=== PATIENT | male | born 1990 ===

== ENCOUNTER 2018-08-22 18:30 | Emergency (ER) | payer SELFPAY ==
[2018-08-22 19:50] VITALS: BP 128/84
== END 2018-08-22 20:40 | disposition left against medical advice (07) ==
LOC: ED 18:30
DX: Z20.2 Contact with and (suspected) exposure to infections with a predominantly sexual mode of transmission (principal); Z53.21 Procedure and treatment not carried out due to patient leaving prior to being seen by health care provider